=== PATIENT | female | born 1985 | race Caucasian/White ===

== ENCOUNTER 2019-02-13 21:17 | Emergency (ER) | payer MEDICAID ==
[2019-02-13 22:19] VITALS: BP 138/67; PULSE 75
--- NOTE | 2019-02-13 22:21 | EDM.PDOC ---
ED HPI GENERAL MEDICAL PROBLEM - General Chief Complaint: Lower Extremity Injury/Pain Stated Complaint: FOOT HURTS NOT AN ACCIDENT Time Seen by Provider: 02/13/19 22:21 Source of Information: Reports: Patient - History of Present Illness INITIAL COMMENTS - FREE TEXT/NARRATIVE: 33 years old female patient presented with a chief complaint of pain of the right foot, mainly big toe started yesterday. Worse when she bear weight. Denies any trauma or injury. She think it is swollen. She does not have any fever. No history of gout. She has not taken any pain medication. Right Foot Pain Score (Numeric/FACES): 8 - Related Data Allergies Allergy/AdvReac Type Severity Reaction Status Date / Time azithromycin [From Zithromax] Allergy Difficulty Verified 12/24/14 14:28 Breathing coconut Allergy Hives Verified 02/13/19 22:19 palm oil Allergy Hives Verified 02/13/19 22:19 Home Meds: Home Meds Albuterol [Ventolin HFA] 2 puff INH QID PRN 06/02/13 [History] Mometasone Furoate [Asmanex 220 MCG] 1 inhalation INH DAILY 06/02/13 [History] busPIRone [Buspar] 10 mg PO DAILY 05/10/15 [History] Cyanocobalamin (Vitamin B-12) [Vitamin B-12] 1,000 mcg PO DAILY 02/13/19 [ History] EPINEPHrine [Epinephrine] 0.15 mg IM ONETIME 02/13/19 [History] Escitalopram Oxalate [Lexapro] 20 mg PO DAILY 02/13/19 [History] Ferrous Sulfate 325 mg PO WITHBREAKFAST 02/13/19 [History] Loratadine [Claritin] 10 mg PO DAILY PRN 02/13/19 [History] Norethindrone [Shama] 0.35 mg PO DAILY 02/13/19 [History] Past Medical History Respiratory History: Reports: Asthma CLAIMS TECHNICIAN History: Reports: , Other (See Below) Other CLAIMS TECHNICIAN History: 3 c-sections Psychiatric History: Reports: Anxiety - Past Surgical History GI Surgical History: Reports: Cholecystectomy Social & Family History - Living Situation & Occupation Living situation: Reports: with Significant Other, with Family Occupation: Employed Review of Systems - Review of Systems Review Of Systems: ROS reveals no pertinent complaints other than HPI. ED EXAM, GENERAL - Physical Exam Exam: See Below Exam Limited By: No Limitations General Appearance: Alert, WD/WN, No Apparent Distress Head: Atraumatic, Normocephalic Neck: Normal Inspection, Supple, Non-Tender, Full Range of Motion Respiratory/Chest: No Respiratory Distress, Lungs Clear, Normal Breath Sounds, No Accessory Muscle Use, Chest Non-Tender Cardiovascular: Normal Peripheral Pulses, Regular Rate, Rhythm, No Edema, No Gallop, No JVD, No Murmur, No Rub GI/Abdominal: Normal Bowel Sounds, Soft, Non-Tender, No Organomegaly, No Distention, No Abnormal Bruit, No Mass Extremities: Normal Inspection, Normal Range of Motion, Non-Tender, Normal Capillary Refill, No Pedal Edema Neurological: Alert (tenderness, mild swelling of first metatarsophalangeal joint of the right foot. No discharge. No erythema. CMS intact.), Oriented, CN II-XII Intact, Normal Cognition, Normal Gait, Normal Reflexes, No Motor/Sensory Deficits Course - Vital Signs Last Recorded V/S: Last Vital Signs Temp 36.2 C 02/13/19 22:17 Pulse 75 02/13/19 22:17 Resp 16 02/13/19 22:17 BP 138/67 02/13/19 22:17 Pulse Ox 98 02/13/19 22:17 - Orders/Labs/Meds Orders: Active Orders 24 hr Category Date Time Status Foot 2V Rt [CR] Stat Exams 02/13/19 22:35 Taken Labs: Laboratory Tests 02/13/19 02/13/19 Range/Units 22:45 22:45 WBC 13.0 H (4.5-11.0) K/uL RBC 4.97 (3.30-5.50) M/uL Hgb 14.7 (12.0-15.0) g/dL Hct 44.4 (36.0-48.0) % MCV 89 (80-98) fL MCH 30 (27-31) pg MCHC 33 (32-36) % Plt Count 237 (150-400) K/uL Neut % (Auto) 48 (36-66) % Lymph % (Auto) 38 (24-44) % [place] % (Auto) 11 H (2-6) % Eos % (Auto) 3 (2-4) % Baso % (Auto) 0 (0-1) % Uric Acid 5.2 (2.6-6.2) mg/dL Meds: Medications Discontinued Medications Generic Name Dose Route Start Last Admin Trade Name Homer PRN Reason Stop Dose Admin Ketorolac Tromethamine 60 mg 02/13/19 22:34 02/13/19 22:40 Toradol IM 02/13/19 22:35 60 mg ONETIME ONE Administration - Radiology Interpretation Free Text/Narrative:: patient was seen and examined shortly after arrival. Stable. Given 60 mg IM Toradol. Lab and imaging reviewed with the patient.mildly elevated white count. X-ray shows no acute displaced fracture no acute abnormalities. Official reading by radiologist still pending. No sign of infection. This most likely inflammatory process, possible gout. Given a prescription for indomethacin. Advised to follow-up closely with primary doctor for reevaluation. Come back for any worsening symptom. Patient agrees with the plan. Stable for discharge. Departure - Departure Time of Disposition: 23:45 Disposition: Home, Self-Care 01 Condition: Good Clinical Impression: Arthritis - Discharge Information *PRESCRIPTION DRUG MONITORING PROGRAM REVIEWED*: Not Applicable *COPY OF PRESCRIPTION DRUG MONITORING REPORT IN PATIENT NOLAN: Not Applicable Instructions: Arthritis Referrals: Chani Chambers PA [Primary Care Provider] - Forms: ED Department Discharge Additional Instructions: rest and stay well-hydrated Follow-up with PCP in 2 days for reevaluation Come back if symptom worsen - My Orders Last 24 Hours: My Active Orders 02/13/19 22:35 Foot 2V Rt [CR] Stat - Assessment/Plan Last 24 Hours: My Active Orders 02/13/19 22:35 Foot 2V Rt [CR] Stat Plan: rest and stay well-hydrated Follow-up with PCP in 2 days for reevaluation Come back if symptom worsen
[2019-02-13] MEDS: Ketorolac 60 MG/2 ML SDV IM ONE (22:40)
--- NOTE | 2019-02-13 23:54 | CRLCR ---
HISTORY: Pain below the right great toe with no history of injury. COMPARISON: None available. FINDINGS: The right foot is examined with AP and lateral views. There is no sign of fracture or dislocation. The soft tissues are normal in appearance without sign of radio-opaque foreign body. No significant degenerative disease is seen. IMPRESSION: Normal right foot. Dictated by Donald Rodrigez MD @ Feb 13 2019 11:51PM Signed by Dr. Donald Rodrigez @ Feb 13 2019 11:52PM
== END 2019-02-13 23:56 | disposition home or self-care (01) ==
LOC: JP.ED 21:17
DX: M19.071 Primary osteoarthritis, right ankle and foot (principal); F41.9 Anxiety disorder, unspecified; J45.909 Unspecified asthma, uncomplicated; Z88.1 Allergy status to other antibiotic agents; Z91.018 Allergy to other foods; Z79.899 Other long term (current) drug therapy; Z79.51 Long term (current) use of inhaled steroids
CPT/HCPCS: 36415; 73620; 84550; 85025; 96372; 99283; J1885

== ENCOUNTER 2021-11-22 22:25 | Emergency (ER) | payer MEDICAID ==
[2021-11-22 22:41] VITALS: BP 134/85; PULSE 70
== END 2021-11-22 23:49 | disposition home or self-care (01) ==
LOC: JP.ED 22:25
DX: U07.1 COVID-19 (principal); R11.0 Nausea; J45.901 Unspecified asthma with (acute) exacerbation; F17.210 Nicotine dependence, cigarettes, uncomplicated; Z88.1 Allergy status to other antibiotic agents; Z91.018 Allergy to other foods; Z79.899 Other long term (current) drug therapy; Z86.16 Personal history of COVID-19; Z90.49 Acquired absence of other specified parts of digestive tract
CPT/HCPCS: 99284